=== PATIENT | male | born 1965 | race Caucasian/White ===

== ENCOUNTER 2020-04-03 07:03 | Emergency (ER) | payer BC ==
[2020-04-03] MEDS ORDERED: MORPHINE SULFATE 4 MG INJ IV ONE (07:41)
[2020-04-03] MEDS ORDERED: Compazine 10 MG/2 ML IV ONE (07:41)
[2020-04-03] MEDS ORDERED: Sodium Chloride 0.9% 1000 ML 1,000 ML IV STA (07:41)
[2020-04-03] MEDS ORDERED: MORPHINE SULFATE 4 MG INJ ONE (07:46)
[2020-04-03] MEDS ORDERED: Compazine 10 MG/2 ML ONE (07:47)
[2020-04-03] MEDS ORDERED: Sodium Chloride 0.9% 1000 ML 1,000 ML ONE (07:47)
[2020-04-03 08:02] LABS: Hematocrit 40.7 % (42-50); Hemoglobin 13.5 gm/dl (12.5-18.0); Mean Cell Volume 95.5 fl (78-100); Mean Corpuscular Hemoglobin 31.7 pg (26-32); Mean Corpuscular Hgb Concent. 33.2 g/dl (32-36); Mean Platelet Volume 9.6 fl (7.5-11.0); Platelet Count 219 K/mm3 (150-450); Red Blood Count 4.26 M/mm3 (4.1-5.6); Red Cell Distribution Width 12.7 % (11.5-14.0)
--- NOTE | 2020-04-03 08:02 | ERPHSYRPT ---
- History of Present Illness Time Seen by Provider: 04/03/20 08:00 Historian: patient Exam Limitations: no limitations Patient Subjective Stated Complaint: Pt c/o of left flank pain that began last night, pt has a hx of kidney stones Triage Nursing Assessment: Pt drove self to the ER, vitals wnl, rates pain /10, pain to left flank that radiates to the left side, skin n/w/d, pain when urinates, denies any other issues at this time Physician History: 54-year-old male with history of hypertension and obesity and recurrent kidney stone started having a left-sided flank pain last night associated with blood in his urine and frequency of urination. Pain was radiating from his left flank to left side of the front abdomen. He denies any nausea or vomiting. Timing/Duration: yesterday Activities at Onset: none Quality: dullness Abdominal Pain Onset Location: flank (left) Pain Radiation: LLQ Severity of Pain-Max: moderate Severity of Pain-Current: moderate Modifying Factors: Improves With: nothing Associated Symptoms: denies symptoms Allergies/Adverse Reactions: No Known Drug Allergies Allergy (Verified 04/03/20 07:23) Home Medications: Amlodipine Besylate [Norvasc] 10 mg PO DAILY 04/03/20 [History] Levothyroxine Sodium 100 Mcg [Synthroid 100 Mcg] 100 mcg PO DAILY 04/03/20 [History] Losartan Potassium 50 mg PO BID 04/03/20 [History] Simvastatin 10 mg [Zocor 10MG] 10 mg PO DAILY 04/03/20 [History] Travel Risk - International Travel Have you traveled outside of the country in past 3 weeks: No (n) If Yes, where;: n - Coronavirus Screening Close contact with a COVID-19 positive Pt in past 14-21 Days: No - Review of Systems Constitutional: No Fever, No Chills Eyes: No Symptoms Ears, Nose, & Throat: No Symptoms Respiratory: No Cough, No Dyspnea Cardiac: No Chest Pain, No Edema, No Syncope Abdominal/Gastrointestinal: Abdominal Pain, No Nausea, No Vomiting, No Diarrhea Genitourinary Symptoms: Dysuria, Frequency, Hematuria Musculoskeletal: No Back Pain, No Neck Pain Skin: No Rash Neurological: No Dizziness, No Focal Weakness, No Sensory Changes Psychological: No Symptoms Endocrine: No Symptoms All Other Systems: Reviewed and Negative - Past Medical History Pertinent Past Medical History: Yes Cardiac History: High Cholesterol, Hypertension Endocrine Medical History: Hypothyroidism Other Medical History: kidney stones - Past Surgical History Past Surgical History: Yes - Social History Smoking Status: Never smoker Exposure to second hand smoke: No Drug Use: none Patient Lives Alone: No - Nursing Vital Signs Nursing Vital Signs: Initial Vital Signs Temperature 98.0 F 04/03/20 07:14 Pulse Rate 81 04/03/20 07:14 Blood Pressure 128/78 04/03/20 07:14 O2 Sat by Pulse Oximetry 95 04/03/20 07:14 Pain Scale Pain Intensity 7 - Physical Exam General Appearance: no apparent distress, alert Eye Exam: PERRL/EOMI, eyes nml inspection Ears, Nose, Throat Exam: normal ENT inspection, pharynx normal, moist mucous membranes Neck Exam: normal inspection, non-tender, supple, full range of motion Respiratory Exam: normal breath sounds, lungs clear, No respiratory distress Cardiovascular Exam: regular rate/rhythm, normal heart sounds Gastrointestinal/Abdomen Exam: soft, No tenderness, No mass Back Exam: normal inspection, normal range of motion, No CVA tenderness, No vertebral tenderness Extremity Exam: normal inspection, normal range of motion, pelvis stable Neurologic Exam: alert, oriented x 3, cooperative, normal mood/affect, nml cerebellar function, sensation nml, No motor deficits Skin Exam: normal color, warm, dry SpO2: 95 - Course Nursing assessment & vital signs reviewed: Yes - CT Exams Abdomen/Pelvis CT Interpretation: Tele-radiologist Report (left mid ureter stone 8x5 mm) Ordered Tests: Active Orders 24 hr Category Date Time Status ABDOMEN AND PELVIS W/0 CONTRAS [CT] Stat Exams 04/03/20 07:42 Taken CBC W DIFF Stat Lab 04/03/20 07:50 Results CMP Stat Lab 04/03/20 07:50 Completed CULTURE,URINE Stat Lab 04/03/20 07:48 Received Manual Differential NC Stat Lab 04/03/20 07:50 Results Pathologist Review Stat Lab 04/03/20 07:50 Results UA W/RFX UR CULTURE Stat Lab 04/03/20 07:48 Completed Medication Summary Discontinued Medications Generic Name Dose Route Start Last Admin Trade Name Freq PRN Reason Stop Dose Admin Fentanyl Citrate 25 mcg 04/03/20 08:46 04/03/20 08:52 Sublimaze 100 Mcg/2 Ml IV 12/20/20 08:47 25 mcg STAT ONE Administration Fentanyl Citrate Confirm 04/03/20 08:51 Sublimaze 100 Mcg/2 Ml Administered 04/03/20 08:52 Dose 100 mcg .ROUTE .STK-MED ONE Sodium Chloride 1,000 mls @ 999 mls/hr 04/03/20 07:41 04/03/20 08:56 Sodium Chloride 0.9% 1000 Ml IV 04/03/20 08:41 Infused .Q1H1M STA Infusion Sodium Chloride Confirm 04/03/20 07:47 Sodium Chloride 0.9% 1000 Ml Administered 04/03/20 07:48 Dose 1,000 mls @ ud .ROUTE .STK-MED ONE Ceftriaxone Sodium/Dextrose 1 g in 50 mls @ 100 mls/hr 04/03/20 08:25 04/03/20 08:56 Rocephin 1 Gm-D5w 50 Ml Bag IV 04/03/20 08:54 Infused STAT STA Infusion Ceftriaxone Sodium/Dextrose Confirm 04/03/20 08:28 Rocephin 1 Gm-D5w 50 Ml Bag Administered 04/03/20 08:29 Dose 1 g in 50 mls @ ud IV .STK-MED ONE Morphine Sulfate 4 mg 04/03/20 07:41 04/03/20 07:50 Morphine Sulfate 4 Mg Inj IV 04/03/20 07:42 4 mg STAT ONE Administration Morphine Sulfate Confirm 04/03/20 07:46 Morphine Sulfate 4 Mg Inj Administered 04/03/20 07:47 Dose 4 mg .ROUTE .STK-MED ONE Prochlorperazine Edisylate 5 mg 04/03/20 07:41 04/03/20 07:49 Compazine 10 Mg/2 Ml IV 04/03/20 07:42 5 mg STAT ONE Administration Prochlorperazine Edisylate Confirm 04/03/20 07:47 Compazine 10 Mg/2 Ml Administered 04/03/20 07:48 Dose 10 mg .ROUTE .STK-MED ONE Lab/Rad Data: Laboratory Result Diagrams 04/03/20 07:50 04/03/20 07:50 Laboratory Results 04/03/20 04/03/20 04/03/20 Range/Units 07:50 07:50 07:48 WBC 35.1 H* (4.0-10.5) K/mm3 RBC 4.26 (4.1-5.6) M/mm3 Hgb 13.5 (12.5-18.0) gm/dl Hct 40.7 L (42-50) % MCV 95.5 (78-100) fl MCH 31.7 (26-32) pg MCHC 33.2 (32-36) g/dl RDW 12.7 (11.5-14.0) % Plt Count 219 (150-450) K/mm3 MPV 9.6 (7.5-11.0) fl Segmented Neutrophils 73 H (36.-66.) % Band Neutrophils 24 H (0.0-2.0) % Lymphocytes (Manual) 3 L (24-44) % Toxic Granulation 1+ Platelet Estimate NORMAL (NORMAL) RBC Morphology NORMAL Smear Path Review Pending Sodium 133 L (137-145) mmol/L Potassium 4.4 (3.5-5.1) mmol/L Chloride 99 (98-107) mmol/L Carbon Dioxide 25 (22-30) mmol/L Anion Gap 13.4 (5-15) MEQ/L BUN 24 H (9-20) mg/dL Creatinine 1.16 (0.66-1.25) mg/dL Estimated GFR > 60.0 ML/MIN Glucose 168 H (74-106) mg/dL Calcium 8.9 (8.4-10.2) mg/dL Total Bilirubin 0.70 (0.2-1.3) mg/dL AST 74 H (17-59) U/L ALT 70 H (0-50) U/L Alkaline Phosphatase 38 (38-126) U/L Serum Total Protein 6.9 (6.3-8.2) g/dL Albumin 3.7 (3.5-5.0) g/dL Urine Color YELLOW (YELLOW) Urine Appearance CLOUDY (CLEAR) Urine pH 9.0 (5-6) Ur Specific [place] 1.019 (1.005-1.025) Urine Protein 100 (Negative) Urine Ketones NEGATIVE (NEGATIVE) Urine Blood SMALL (0-5) David/ul Urine Nitrite POSITIVE (NEGATIVE) Urine Bilirubin NEGATIVE (NEGATIVE) Urine Urobilinogen NEGATIVE (0-1) mg/dL Ur Leukocyte Esterase LARGE (NEGATIVE) Urine WBC (Auto) >100 (0-5) /HPF Urine RBC (Auto) 0-2 (0-2) /HPF U Epithel Cells (Auto) RARE (FEW) /HPF Urine Bacteria (Auto) FEW (NEGATIVE) /HPF Urine Culture Reflexed YES (NO) Urine Glucose NEGATIVE (NEGATIVE) mg/dL - Progress Progress: unchanged, pain not gone completely Progress Note: 04/03/20 09:24 Patient has a left mid ureter kidney stone 8 x 5 mm in size. [facility] contacted. Urologist Dr. Deleon contacted. He accepted patient but he advised patient to be admitted under hospitalist service. Hospitalist service contacted and they accepted the patient. We will transfer patient via ambulance. Discussed with DrAnel: [facility] Will see patient in: hospital (observation) () Counseled pt/family regarding: lab results, diagnosis, need for follow-up, rad results - Departure Departure Disposition: Transfer () Clinical Impression: Left ureteral calculus Condition: Stable Critical Care Time: Yes Critical Care Time(excluding separately billable procedures): Critical 30-74 mins Referrals: Provider,Unknown [Primary Care Provider] - Instructions: Kidney Stones (DC)
[2020-04-03 08:08] LABS: White Blood Count 35.1 K/mm3 (4.0-10.5)
[2020-04-03 08:14] LABS: ALBUMIN 3.7 g/dL (3.5-5.0); ALKALINE PHOSPHATASE 38 U/L (38-126); ANION GAP 13.4 MEQ/L (5-15); BLOOD UREA NITROGEN 24 mg/dL (9-20); CHLORIDE 99 mmol/L (98-107); Calcium 8.9 mg/dL (8.4-10.2); Carbon Dioxide 25 mmol/L (22-30); Creatinine 1 1.16 mg/dL (0.66-1.25); EST GLOMERULAR FILTRATION RATE > 60.0 ML/MIN; Glucose 168 mg/dL (74-106); Potassium 4.4 mmol/L (3.5-5.1); SGOT/AST 74 U/L (17-59); SGPT/ALT 70 U/L (0-50); SODIUM 133 mmol/L (137-145); Total Protein 6.9 g/dL (6.3-8.2)
[2020-04-03 08:17] VITALS: BP 98/77
[2020-04-03 08:17] LABS: Appearance CLOUDY (CLEAR); Bacteria FEW /HPF (NEGATIVE); Bilirubin NEGATIVE (NEGATIVE); Blood SMALL Ery/ul (0-5); Epithelial Cells RARE /HPF (FEW); Glucose NEGATIVE (NEGATIVE); Ketones NEGATIVE (NEGATIVE); Leukocyte Esterase LARGE (NEGATIVE); Nitrite POSITIVE (NEGATIVE); Protein,Urine Dip 100 (Negative); RBC 0-2 /HPF (0-2); Specific Gravity 1.019 (1.005-1.025); Urobilinogen NEGATIVE mg/dL (0-1); WBC >100 /HPF (0-5)
[2020-04-03] MEDS ORDERED: ROCEPHIN 1 Gm-D5w 50 ml Bag** 1 G/50 ML IVPB IV STA (08:25)
[2020-04-03] MEDS ORDERED: ROCEPHIN 1 Gm-D5w 50 ml Bag** 1 G/50 ML IVPB IV ONE (08:28)
[2020-04-03] MEDS ORDERED: SUBLIMAZE 100 MCG/2 ML IV ONE (08:46)
[2020-04-03 08:48] LABS: BAND 24 % (0.0-2.0); Lymphocytes 3 % (24-44); Neutrophils 73 % (36.-66.); Total Cells Counted 100
[2020-04-03 08:49] LABS: Toxic Granulation 1+
[2020-04-03 08:50] LABS: Platelet Estimate NORMAL (NORMAL)
[2020-04-03] MEDS ORDERED: SUBLIMAZE 100 MCG/2 ML ONE (08:51)
[2020-04-03 09:03] VITALS: PULSE 84
[2020-04-03 09:27] VITALS: O2SAT 95
--- NOTE | 2020-04-03 19:08 | XRAY ---
Indication: Left abdomen pain. Multiple contiguous axial images obtained through the abdomen and pelvis without contrast. Comparison: None Lung bases demonstrates tiny left base calcified granuloma. Heart is not enlarged. Noncontrasted stomach and bowel loops appear nonobstructed. Normal appendix. Scattered descending and sigmoid diverticulosis. Proximal left ureter demonstrates a 8 mm calculus, approximately L3-L4 interspace level. Proximal ureter is prominent long with moderate hydronephrosis and mild perinephric stranding consistent with obstructive uropathy. No free fluid/air. A few additional bilateral renal micro-calculi. Fatty hepatomegaly measuring 22 cm. Spleen is also enlarged measuring 14.5 cm. Remaining gallbladder, pancreas, adrenal glands, bladder, and aorta are unremarkable for noncontrast exam. Osseous structures intact with mild degenerative changes lower lumbar spine. Impression: 1. 8 mm proximal left ureter calculus producing obstructive uropathy as detailed. Additional bilateral renal micro-calculi. 2. Incidental colonic diverticulosis, fatty hepatomegaly, and splenomegaly. Comment: Preliminary interpretation was made by [facility]. No critical discrepancy.
== END 2020-04-03 10:07 | disposition short-term general hospital (02) ==
LOC: ED 07:03
DX: N20.2 Calculus of kidney with calculus of ureter (principal)
CPT/HCPCS: 36000; 36415; 74176; 80053; 81001; 85025; 87077; 87086; 87186; 96360; 96365; 96374; 96375; 99285; 99291; J0696; J2270; J3010

== ENCOUNTER 2020-09-15 08:56 | Emergency (ER) | payer BC ==
[2020-09-15] MEDS ORDERED: Sodium Chloride 0.9% 1000 ML 1,000 ML IV STA (09:34)
[2020-09-15] MEDS ORDERED: ANTIVERT 25 MG PO ONE (09:34)
[2020-09-15] MEDS ORDERED: ANTIVERT 25 MG ONE (09:38)
[2020-09-15] MEDS ORDERED: Sodium Chloride 0.9% 1000 ML 1,000 ML ONE (09:39)
--- NOTE | 2020-09-15 09:41 | ERPHSYRPT ---
- History of Present Illness Time Seen by Provider: 09/15/20 08:58 Source: patient Exam Limitations: no limitations Patient Subjective Stated Complaint: Pt states that he woke this am at approx 0400 and the room was spinning, he has continued to be dizzy after getting up, he states that this happened before and is more prevelant when sleeping and rolling over to his left side Triage Nursing Assessment: Pt drove self to the ER, vitals wnl, denies pain, pulses normal, denies dizziness when turning head from side to side, skin n/w/d, denies ear pain, doesn't appear to be in any distress Physician History: 55 years old male with a history of hypertension, hypothyroidism, occasional vertigo symptoms presented in the ER with sudden onset room spinning sensation upon waking up at 3 in the morning while lying on the bed, went back to sleep and woke up again at 5 and since then he is having constant feeling of dizzin ess/lightheadedness without spinning sensation in himself or room. Now he feels more of a lightheaded and off-balance whenever tries to walk with tendency to fall on one side or the other. Denies any chest pain palpitations or shortness of breath. Does report having vertiginous symptoms in the past but normal off balance. Denies any visual disturbance, numbness tingling or focal weakness. Time of Onset/Last Time Seen Normal: 0300 Timing/Duration: hour(s) (6), constant, sudden, worse Severity: moderate Deficits: off balance Baseline/Normal Cognition: alert oriented x 3 Current Cognition: alert oriented x 3 Baseline Gait: walks w/o assistance Associated Symptoms: denies symptoms Allergies/Adverse Reactions: No Known Drug Allergies Allergy (Verified 04/03/20 07:23) Home Medications: Amlodipine Besylate [Norvasc] 10 mg PO DAILY 04/03/20 [History] Levothyroxine Sodium 100 Mcg [Synthroid 100 Mcg] 125 mcg PO DAILY 04/03/20 [History] Losartan Potassium 50 mg PO BID 04/03/20 [History] Simvastatin 10 mg [Zocor 10MG] 10 mg PO DAILY 04/03/20 [History] Travel Risk - International Travel Have you traveled outside of the country in past 3 weeks: No - Coronavirus Screening Are you exhibiting any of the following symptoms?: No Close contact with a COVID-19 positive Pt in past 14-21 Days: No - Vaccine Status Have you recieved a Covid-19 vaccination: Yes 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: [email or web address] - Review of Systems Constitutional: Fatigue Eyes: No Symptoms Ears, Nose, & Throat: No Symptoms Respiratory: No Symptoms Cardiac: No Symptoms Abdominal/Gastrointestinal: No Symptoms Genitourinary Symptoms: No Symptoms Musculoskeletal: No Symptoms Skin: No Symptoms Neurological: Dizziness, Gait Changes Psychological: No Symptoms Endocrine: No Symptoms Hematologic/Lymphatic: No Symptoms Immunological/Allergic: No Symptoms - Past Medical History Pertinent Past Medical History: Yes Cardiac History: High Cholesterol, Hypertension Endocrine Medical History: Hypothyroidism Other Medical History: kidney stones - Past Surgical History Past Surgical History: Yes - Social History Smoking Status: Never smoker Exposure to second hand smoke: No Drug Use: none Patient Lives Alone: No - Nursing Vital Signs Nursing Vital Signs: Initial Vital Signs Temperature 97.0 F 09/15/20 08:58 Pulse Rate 71 09/15/20 08:58 Respiratory Rate 12 09/15/20 08:58 Blood Pressure 138/73 09/15/20 08:58 O2 Sat by Pulse Oximetry 97 09/15/20 08:58 Pain Scale Pain Intensity 0 - Eli Coma Scale Best Eye Response (Coward): (4) open spontaneously Best Verbal Response (Eli): (5) oriented Best Motor Response (Coward): (6) obeys commands Coward Total: 15 - Physical Exam General Appearance: no apparent distress, alert Eye Exam: bilateral eye: normal inspection, PERRL, EOMI Ears, Nose, Throat Exam: normal ENT inspection, TMs normal, pharynx normal Neck Exam: normal inspection, non-tender, supple, full range of motion Respiratory: normal breath sounds, lungs clear Cardiovascular: regular rate/rhythm, normal heart sounds Gastrointestinal: soft, normal bowel sounds, No tenderness Back Exam: normal inspection, normal range of motion Extremity Exam: normal inspection, normal range of motion, pelvis stable Mental Status: alert, oriented x 3, 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 Exam: normal hearing, normal speech, PERRL, No abnormal speech, No facial asymmetry Coordination/Gait: normal finger to nose, normal cerebellar function, No ABN nose to finger (R), No ABN nose to finger (L) Motor/Sensory: no motor deficit, no sensory deficit, no pronator drift, negative Babinski's sign, No pronator drift (R), No pronator drift (L) DTR: bicep (R): 2+, bicep (L): 2+, tricep (R): 2+, tricep (L): 2+, knee (R): 2+, knee (L): 2+ Skin Exam: normal color SpO2 Interpretation: normal SpO2: 97 O2 Delivery: Room Air - Course EKG Interpreted by Me: RATE (65), Sinus Rhythm, NORMAL AXIS, NORMAL INTERVALS, Other (PACs) Ordered Tests: Active Orders 24 hr Category Date Time Status Chief Merchandising Officer STAT Care 09/15/20 09:35 Completed EKG-ER Only STAT Care 09/15/20 09:34 Completed IV Insertion STAT Care 09/15/20 09:34 Completed Orthostatic Vital Signs STAT Care 09/15/20 09:34 Completed POCT Glucose Check STAT Care 09/15/20 09:34 Completed CHEST 1 VIEW (PORTABLE) Stat Exams 09/15/20 09:34 Completed HEAD WITHOUT CONTRAST [CT] Stat Exams 09/15/20 09:34 Completed CBC W DIFF Stat Lab 09/15/20 09:20 Completed MAGNESIUM Stat Lab 09/15/20 09:34 Completed POCT GLUCOSE Stat Lab 09/15/20 09:09 Completed TROPONIN Q3H Lab 09/15/20 12:45 Ordered TROPONIN Q3H Lab 09/15/20 15:45 Ordered TROPONIN Q3H Lab 09/15/20 18:45 Ordered TROPONIN Q3H Lab 09/15/20 21:45 Ordered TSH [TSH, 3RD Generation] Stat Lab 09/15/20 09:35 Completed UA W/RFX UR CULTURE Stat Lab 09/15/20 09:48 Completed Medication Summary Discontinued Medications Generic Name Dose Route Start Last Admin Trade Name Freq PRN Reason Stop Dose Admin Sodium Chloride 1,000 mls @ 999 mls/hr 09/15/20 09:34 09/15/20 10:41 Sodium Chloride 0.9% 1000 Ml IV 09/15/20 10:34 Infused .Q1H1M STA Infusion Sodium Chloride Confirm 09/15/20 09:39 Sodium Chloride 0.9% 1000 Ml Administered 09/15/20 09:40 Dose 1,000 mls @ ud .ROUTE .STK-MED ONE Meclizine HCl 25 mg 09/15/20 09:34 09/15/20 09:40 Antivert 25 Mg PO 09/15/20 09:35 25 mg STAT ONE Administration Meclizine HCl Confirm 09/15/20 09:38 Antivert 25 Mg Administered 09/15/20 09:39 Dose 25 mg .ROUTE .STK-MED ONE Lab/Rad Data: Laboratory Result Diagrams 09/15/20 09:20 09/15/20 09:45 Laboratory Results 09/15/20 09/15/20 09/15/20 Range/Units 09:48 09:45 09:35 WBC (4.0-10.5) K/mm3 RBC (4.1-5.6) M/mm3 Hgb (12.5-18.0) gm/dl Hct (42-50) % MCV (78-100) fl MCH (26-32) pg MCHC (32-36) g/dl RDW (11.5-14.0) % Plt Count (150-450) K/mm3 MPV (7.5-11.0) fl Gran % (36.0-66.0) % Eos # (Auto) (0-0.5) Absolute Lymphs (auto) (1.0-4.6) Absolute Monos (auto) (0.0-1.3) Lymphocytes % (24.0-44.0) % Monocytes % (0.0-12.0) % Eosinophils % (0.00-5.0) % Basophils % (0.0-0.4) % Absolute Granulocytes (1.4-6.9) Basophils # (0-0.4) Sodium Direct 141 (138-146) mmol/L Potassium 4.3 (3.5-4.9) mmol/L Chloride 104 (98-109) mmol/L Carbon Dioxide 28 (24-29) mmol/L Venous BUN 21 (8-26) mg/dL Creatinine 0.6 (0.6-1.3) mg/dL Glucose 111 H (70-105) mg/dL POC Glucometer (74 to 106) mg/dL Ionized Calcium 1.23 (1.12-1.32) mmol/L Magnesium (1.6-2.3) mg/dL Troponin 0.00 (0.00-0.03) ng/mL TSH 3rd Generation 1.990 (0.47-4.68) mIU/L Urine Color YELLOW (YELLOW) Urine Appearance SLIGHTLY CLOUDY (CLEAR) Urine pH 7.0 (5-6) Ur Specific [place] 1.019 (1.005-1.025) Urine Protein NEGATIVE (Negative) Urine Ketones NEGATIVE (NEGATIVE) Urine Blood NEGATIVE (0-5) David/ul Urine Nitrite NEGATIVE (NEGATIVE) Urine Bilirubin NEGATIVE (NEGATIVE) Urine Urobilinogen NEGATIVE (0-1) mg/dL Ur Leukocyte Esterase NEGATIVE (NEGATIVE) Urine WBC (Auto) 0-2 (0-5) /HPF Urine RBC (Auto) NONE (0-2) /HPF U Epithel Cells (Auto) NONE (FEW) /HPF Urine Mucus (Auto) SLIGHT (NEGATIVE) /HPF Urine Culture Reflexed NO (NO) Urine Glucose NEGATIVE (NEGATIVE) mg/dL 09/15/20 09/15/20 09/15/20 Range/Units 09:34 09:20 09:09 WBC 7.0 (4.0-10.5) K/mm3 RBC 4.67 (4.1-5.6) M/mm3 Hgb 14.3 (12.5-18.0) gm/dl Hct 44.9 (42-50) % MCV 96.1 (78-100) fl MCH 30.6 (26-32) pg MCHC 31.8 L (32-36) g/dl RDW 13.0 (11.5-14.0) % Plt Count 209 (150-450) K/mm3 MPV 10.2 (7.5-11.0) fl Gran % 78.4 H (36.0-66.0) % Eos # (Auto) 0.01 (0-0.5) Absolute Lymphs (auto) 1.05 (1.0-4.6) Absolute Monos (auto) 0.43 (0.0-1.3) Lymphocytes % 15.0 L (24.0-44.0) % Monocytes % 6.2 (0.0-12.0) % Eosinophils % 0.1 (0.00-5.0) % Basophils % 0.3 (0.0-0.4) % Absolute Granulocytes 5.47 (1.4-6.9) Basophils # 0.02 (0-0.4) Sodium Direct (138-146) mmol/L Potassium (3.5-4.9) mmol/L Chloride (98-109) mmol/L Carbon Dioxide (24-29) mmol/L Venous BUN (8-26) mg/dL Creatinine (0.6-1.3) mg/dL Glucose (70-105) mg/dL POC Glucometer 110 H (74 to 106) mg/dL Ionized Calcium (1.12-1.32) mmol/L Magnesium 2.1 (1.6-2.3) mg/dL Troponin (0.00-0.03) ng/mL TSH 3rd Generation (0.47-4.68) mIU/L Urine Color (YELLOW) Urine Appearance (CLEAR) Urine pH (5-6) Ur Specific [place] (1.005-1.025) Urine Protein (Negative) Urine Ketones (NEGATIVE) Urine Blood (0-5) David/ul Urine Nitrite (NEGATIVE) Urine Bilirubin (NEGATIVE) Urine Urobilinogen (0-1) mg/dL Ur Leukocyte Esterase (NEGATIVE) Urine WBC (Auto) (0-5) /HPF Urine RBC (Auto) (0-2) /HPF U Epithel Cells (Auto) (FEW) /HPF Urine Mucus (Auto) (NEGATIVE) /HPF Urine Culture Reflexed (NO) Urine Glucose (NEGATIVE) mg/dL - Progress Progress: improved, re-examined Progress Note: 09/15/20 11:45 55 years old is evaluated for vertiginous symptoms with gait disturbance. He has a nonfocal neuro exam throughout stay in the ER. He is given meclizine and his symptoms started to improve. CT head is negative. Grossly unremarkable work-up including EKG and troponin. I have obtained [facility] neurology consult who do not think patient has any stroke related symptoms and is BPV, recommended meclizine to take as needed and outpatient follow-up. Discussed signs symptoms of worsening needing return to ER which he seems understanding. Stable for discharge. Discussed with DrAnel: Other Counseled pt/family regarding: lab results, diagnosis, rad results - Departure Departure Disposition: Home Clinical Impression: BPV (benign positional vertigo) Qualifiers: Laterality: unspecified laterality Qualified Code(s): H81.10 - Benign paroxysmal vertigo, unspecified ear Condition: Stable Critical Care Time: No Referrals: ANITHA MIGUEL MD [Primary Care Provider] - (1-2 days for re evaluation) Instructions: Vertigo (a Type of Dizziness) (DC), Dizziness, Nonvertigo, (DC) Prescriptions: Meclizine HCl 25 mg [Antivert 25 mg] 25 mg PO TID PRN #15 tablet PRN Reason: Dizziness
[2020-09-15 09:46] LABS: Appearance SLIGHTLY CLOUDY (CLEAR); Bilirubin NEGATIVE (NEGATIVE); Blood NEGATIVE Ery/ul (0-5); Glucose NEGATIVE (NEGATIVE); Ketones NEGATIVE (NEGATIVE); Leukocyte Esterase NEGATIVE (NEGATIVE); Mucus SLIGHT /HPF (NEGATIVE); Nitrite NEGATIVE (NEGATIVE); Protein,Urine Dip NEGATIVE (Negative); Specific Gravity 1.019 (1.005-1.025); Urobilinogen NEGATIVE mg/dL (0-1); WBC 0-2 /HPF (0-5)
--- NOTE | 2020-09-15 10:23 | XRAY ---
Indication: Dizziness. No known injury. Multiple contiguous axial images obtained through the head without contrast. Comparison: None Normal appearing brain parenchyma, ventricles, and bony calvarium. Visualized paranasal sinuses and mastoid air cells are clear. Impression: Normal CT head without contrast exam.
--- NOTE | 2020-09-15 10:27 | XRAY ---
Indication: Dizziness. Comparison: November 05, 2008. Portable chest less inflated with new mild right base infiltrate versus atelectasis. Remaining heart, lungs, and bony thorax unremarkable.
[2020-09-15 10:30] LABS: Absolute Neutrophil Ct (ANC) 5.47 (1.4-6.9); BASOPHIL % 0.3 % (0.0-0.4); Basophil (Absolute #) 0.02 (0-0.4); Eosinophil % 0.1 % (0.00-5.0); Eosinophil (Absolute #) 0.01 (0-0.5); Hematocrit 44.9 % (42-50); Hemoglobin 14.3 gm/dl (12.5-18.0); Lymphocyte (Absolute #) 1.05 (1.0-4.6); Mean Cell Volume 96.1 fl (78-100); Mean Corpuscular Hemoglobin 30.6 pg (26-32); Mean Corpuscular Hgb Concent. 31.8 g/dl (32-36); Mean Platelet Volume 10.2 fl (7.5-11.0); Monocyte (Absolute #) 0.43 (0.0-1.3); Monocytes % 6.2 % (0.0-12.0); Neutrophil % 78.4 % (36.0-66.0); Platelet Count 209 K/mm3 (150-450); Red Blood Count 4.67 M/mm3 (4.1-5.6)
[2020-09-15 10:59] LABS: ISTAT CREA 0.6 mg/dL (0.6-1.3)
[2020-09-15 11:29] VITALS: BP 131/70; PULSE 66
[2020-09-15 11:49] VITALS: O2SAT 97
== END 2020-09-15 12:08 | disposition home or self-care (01) ==
LOC: ED 08:56
DX: H81.10 Benign paroxysmal vertigo, unspecified ear (principal)
CPT/HCPCS: 36415; 70450; 71045; 80047; 81001; 82947; 83735; 84443; 84484; 85025; 93005; 93041; 96360; 99284; A9270-GY

== ENCOUNTER 2021-03-31 05:57 | Day surgery (SDC) | payer BC ==
[2021-03-31] MEDS ORDERED: Lactated Ringers 1,000 ML IV SCH (06:30)
[2021-03-31] MEDS ORDERED: Versed 2 MG/2 ML Injection ONE (07:00)
[2021-03-31] MEDS ORDERED: DIPRIVAN 200 MG/20 ML IV ONE ×2 (07:00→07:14)
[2021-03-31 08:15] VITALS: O2SAT 97
[2021-03-31 08:32] VITALS: BP 121/81; PULSE 64
--- NOTE | 2021-03-31 12:54 | OP ---
SURGERY DATE/TIME: 03/31/2021 0700 PREOPERATIVE DIAGNOSIS: Screening exam. Father with history of colon cancer. POSTOPERATIVE DIAGNOSIS: Two small polyps in the colon and mild sigmoid diverticulosis. PROCEDURE: Colonoscopy with cold forceps biopsy. SURGEON: Dr. Gandara. ANESTHESIA: MAC. Medications given by anesthesia department. HISTORY: The patient is a 55-year-old white male patient presenting now for screening colonoscopy. He reports his father has had colon cancer. This is his first examination. The patient was appraised of the risks of the procedure including the risk of perforation, phlebitis, untoward reaction to medication, bleeding and missed lesions. The patient verbalized his understanding and desired to have the procedure performed. DESCRIPTION OF PROCEDURE: The patient was given the medications by the anesthesia department. He had continuous pulse oximetry, ECG monitoring, intermittent blood pressure monitoring during the examination. He was placed in the left lateral decubitus position. A digital rectal examination was performed and revealed normal anal sphincter tone, no masses and a normal prostate. The flexible Olympus pediatric colonoscope was used to intubate the rectum. A view of the colon was developed sequentially to the cecum. Upon insertion and withdrawal, including a retroflex view in the rectum was noted a small polyp in the descending colon which was biopsied to destruction using cold forceps biopsy. A second slightly larger polyp was noted in the sigmoid colon and this was likewise retrieved with cold forceps biopsy to remove the lesion. Upon insertion and withdrawal including retroflexion in the rectum, no other mucosal lesions were noted. Mild sigmoid diverticulosis was present. The scope was removed from the patient. He was sent back to the recovery in good condition. The prep was noted to be fair to good with some liquid stool particularly in descending and sigmoid colon.
== END 2021-03-31 08:45 | disposition home or self-care (01) ==
LOC: SDC 05:57
PROVIDERS: ATTEND Family Medicine
DX: Z12.11 Encounter for screening for malignant neoplasm of colon (principal); K57.30 Diverticulosis of large intestine without perforation or abscess without bleeding; Z80.0 Family history of malignant neoplasm of digestive organs; D12.4 Benign neoplasm of descending colon; D12.5 Benign neoplasm of sigmoid colon
CPT/HCPCS: 88305; J2250; J2704

== ENCOUNTER 2022-09-19 03:35 | Emergency (ER) | payer BC ==
[2022-09-19] MEDS ORDERED: TORAdol 30 mg Injection IV ONE (04:02)
[2022-09-19] MEDS ORDERED: Sodium Chloride 0.9% 1000 ML 1,000 ML IV STA (04:02)
--- NOTE | 2022-09-19 04:09 | ERPHSYRPT ---
- History of Present Illness Time Seen by Provider: 09/19/22 04:05 Historian: patient Exam Limitations: no limitations Patient Subjective Stated Complaint: pt states "I think I have had a kidney stone. I have had them before. I need something for pain." Triage Nursing Assessment: pt ambulatory to bed by self, present, A&Ox3, skin pwd, pt c/o R sided flank that radiates to R abdomen, pt has previous hx of kidney stones with a stent in L Kidney placed 3 years ago, afebrile, c/o nausea as well Physician History: Patient is a 57-year-old male presents to our ED with right-sided flank pain. Patient states that he has a history of kidney stones x3. Patient's last kidney stone was approximately 3 years ago at which time he had a left ureteral stent placed. Patient's pain started today at approximately 9 AM. Patient states his pain started at the left flank. Patient did not come in earlier as the pain essentially resolved. Patient states pain reoccurred early this morning. However pain was now on the right side. No associated chest pain or shortness of breath. No nausea vomiting or diaphoresis. No obvious hematuria. Pain is moderate in intensity. No specific worsening or improving factors. Patient voices no other complaints or concerns at this time. Portions of this note were created with voice recognition technology. There may be grammatical, spelling, punctuation or sound alike errors Timing/Duration: today Activities at Onset: none Quality: aching Abdominal Pain Onset Location: other (Right flank) Pain Radiation: other (Pain radiates from upper right flank to lower right flank.) Severity of Pain-Max: moderate Severity of Pain-Current: mild Modifying Factors: Improves With: nothing Associated Symptoms: denies symptoms Previous symptoms: same symptoms as today Allergies/Adverse Reactions: No Known Drug Allergies Allergy (Verified 09/19/22 03:46) Home Medications: Amlodipine Besylate [Norvasc] 10 mg PO DAILY 04/03/20 [History] Levothyroxine Sodium 100 Mcg [Synthroid 100 Mcg] 125 mcg PO DAILY 04/03/20 [History] Losartan Potassium 50 mg PO BID 04/03/20 [History] Simvastatin 10 mg [Zocor 10MG] 10 mg PO DAILY 04/03/20 [History] Hx Tetanus, Diphtheria Vaccination/Date Given: No Hx Influenza Vaccination/Date Given: Yes Hx Pneumococcal Vaccination/Date Given: No Immunizations Up to Date: Yes Travel Risk - International Travel Have you traveled outside of the country in past 3 weeks: No - Coronavirus Screening Are you exhibiting any of the following symptoms?: No Close contact with a COVID-19 positive Pt in past 14-21 Days: No - Vaccine Status Have you recieved a Covid-19 vaccination: Yes 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: [email or web address] - Review of Systems Constitutional: No Symptoms, No Fever, No Chills Eyes: No Symptoms Ears, Nose, & Throat: No Symptoms Respiratory: No Symptoms, No Cough, No Dyspnea Cardiac: No Symptoms, No Chest Pain, No Edema, No Syncope Abdominal/Gastrointestinal: No Symptoms, No Abdominal Pain, No Nausea, No Vomiting, No Diarrhea Genitourinary Symptoms: No Symptoms, No Dysuria Musculoskeletal: No Symptoms, No Back Pain, No Neck Pain Skin: No Symptoms, No Rash Neurological: No Symptoms, No Dizziness, No Focal Weakness, No Sensory Changes Psychological: No Symptoms Endocrine: No Symptoms Hematologic/Lymphatic: No Symptoms Immunological/Allergic: No Symptoms All Other Systems: Reviewed and Negative - Past Medical History Pertinent Past Medical History: Yes Neurological History: No Pertinent History ENT History: No Pertinent History Cardiac History: High Cholesterol, Hypertension Respiratory History: No Pertinent History Endocrine Medical History: Hypothyroidism Musculoskeletal History: No Pertinent History GI Medical History: No Pertinent History History: No Pertinent History Psycho-Social History: No Pertinent History Male Reproductive Disorders: No Pertinent History Other Medical History: kidney stones - Past Surgical History Past Surgical History: Yes Neuro Surgical History: No Pertinent History Cardiac: No Pertinent History Respiratory: No Pertinent History Gastrointestinal: Hernia Repair Genitourinary: Kidney Surgery Musculoskeletal: No Pertinent History Male Surgical History: No Pertinent History Other Surgical History: L kidney stent - Social History Smoking Status: Never smoker Exposure to second hand smoke: No Drug Use: none Patient Lives Alone: No - Nursing Vital Signs Nursing Vital Signs: Initial Vital Signs Temperature 98.8 F 09/19/22 03:49 Pulse Rate 84 09/19/22 03:49 Respiratory Rate 18 09/19/22 03:49 Blood Pressure 120/78 09/19/22 03:49 O2 Sat by Pulse Oximetry 94 L 09/19/22 03:49 Pain Scale Pain Intensity 0 - Physical Exam General Appearance: no apparent distress, alert Eye Exam: PERRL/EOMI, eyes nml inspection Ears, Nose, Throat Exam: normal ENT inspection, pharynx normal, moist mucous membranes Neck Exam: normal inspection, non-tender, supple, full range of motion Respiratory Exam: normal breath sounds, lungs clear, airway intact, No respiratory distress Cardiovascular Exam: regular rate/rhythm, normal heart sounds, normal peripheral pulses Gastrointestinal/Abdomen Exam: soft, other (Right CVA tenderness.), No tenderness, No mass Back Exam: normal inspection, normal range of motion, No CVA tenderness, No vertebral tenderness Extremity Exam: normal inspection, normal range of motion, pelvis stable Neurologic Exam: alert, oriented x 3, cooperative, normal mood/affect, nml cerebellar function, sensation nml, No motor deficits Skin Exam: normal color, warm, dry Lymphatic Exam: No adenopathy SpO2 Interpretation: normal SpO2: 94 O2 Delivery: Room Air - Course Nursing assessment & vital signs reviewed: Yes - CT Exams Abdomen/Pelvis CT Interpretation: Tele-radiologist Report (Obstructing calculus in the right renal pelvis/ureteropelvic junction measuring 1 x 1.3 cm. Nephrolithiasis right kidney. 1.6 x 0.5 cm obstructing calculus at the left proximal ureter. Left nephrolithiasis) Ordered Tests: Active Orders 24 hr Category Date Time Status IV Insertion STAT Care 09/19/22 04:02 Active ABDOMEN AND PELVIS W/0 CONTRAS [CT] Stat Exams 09/19/22 04:02 Completed CBC W DIFF Stat Lab 09/19/22 04:31 Completed CMP Stat Lab 09/19/22 04:31 Completed UA W/RFX UR CULTURE Stat Lab 09/19/22 06:00 Received Medication Summary Generic Name Dose Route Start Last Admin Trade Name Freq PRN Reason Stop Dose Admin Ceftriaxone Sodium/Dextrose 1 g in 50 mls @ 100 mls/hr 09/19/22 05:54 09/19/22 06:02 Rocephin 1 Gm-D5w 50 Ml Bag IV 09/19/22 06:23 100 mls/hr STAT STA 100 mls/hr Administration Discontinued Medications Generic Name Dose Route Start Last Admin Trade Name Freq PRN Reason Stop Dose Admin Sodium Chloride 1,000 mls @ 999 mls/hr 09/19/22 04:02 09/19/22 06:12 Sodium Chloride 0.9% 1000 Ml IV 09/19/22 05:02 Infused .Q1H1M STA Infusion Sodium Chloride Confirm 09/19/22 04:16 Sodium Chloride 0.9% 1000 Ml Administered 09/19/22 04:17 Dose 1,000 mls @ ud .ROUTE .STK-MED ONE Ceftriaxone Sodium/Dextrose Confirm 09/19/22 06:01 Rocephin 1 Gm-D5w 50 Ml Bag Administered 09/19/22 06:02 Dose 1 g in 50 mls @ ud IV .STK-MED ONE Ketorolac Tromethamine 30 mg 09/19/22 04:02 09/19/22 04:17 Ketorolac Tromethamine 30 Mg/Ml Inj IV 09/19/22 04:03 30 mg STAT ONE Administration Ketorolac Tromethamine Confirm 09/19/22 04:16 Ketorolac Tromethamine 30 Mg/Ml Inj Administered 09/19/22 04:17 Dose 30 mg .ROUTE .STK-MED ONE Ondansetron HCl 4 mg 09/19/22 04:14 09/19/22 04:17 Ondansetron Hcl 4 Mg/2 Ml Vial IV 09/19/22 04:15 4 mg STAT ONE Administration Ondansetron HCl Confirm 09/19/22 04:16 Ondansetron Hcl 4 Mg/2 Ml Vial Administered 09/19/22 04:17 Dose 4 mg .ROUTE .STK-MED ONE Lab/Rad Data: Laboratory Result Diagrams 09/19/22 04:31 09/19/22 04:31 Laboratory Results 09/19/22 09/19/22 Range/Units 04:31 04:31 WBC 16.1 H (4.0-10.5) x10^3/uL RBC 4.40 (4.1-5.6) x10^6/uL Hgb 13.5 (12.5-18.0) g/dL Hct 40.5 L (42-50) % MCV 92.0 (78-100) fL MCH 30.7 (26-32) pg MCHC 33.3 (32-36) g/dL RDW 13.3 (11.5-14.0) % Plt Count 188 (150-450) x10^3/uL MPV 10.2 (7.5-11.0) fL Gran % 87.1 H (36.0-66.0) % Immature Gran % (Auto) 0.7 H (0.00-0.4) % Nucleat RBC Rel Count 0.0 (0.00-0.1) % Eos # (Auto) 0 (0-0.5) x10^3/uL Immature Gran # (Auto) 0.11 H (0.00-0.03) x10^3u/L Absolute Lymphs (auto) 0.52 L (1.0-4.6) x10^3/uL Absolute Monos (auto) 1.43 H (0.0-1.3) x10^3/uL Absolute Nucleated RBC 0.00 (0.00-0.01) x10^3u/L Lymphocytes % 3.2 L (24.0-44.0) % Monocytes % 8.9 (0.0-12.0) % Eosinophils % 0.0 (0.00-5.0) % Basophils % 0.1 (0.0-0.4) % Absolute Granulocytes 13.98 H (1.4-6.9) x10^3/uL Basophils # 0.02 (0-0.4) x10^3/uL Sodium 130 L (137-145) mmol/L Potassium 4.1 (3.5-5.1) mmol/L Chloride 95 L (98-107) mmol/L Carbon Dioxide 25 (22-30) mmol/L Anion Gap 14.5 (5-15) MEQ/L BUN 31 H (9-20) mg/dL Creatinine 2.04 H (0.66-1.25) mg/dL Estimated GFR 36.1 ML/MIN Glucose 144 H (74-106) mg/dL Calcium 8.5 (8.4-10.2) mg/dL Total Bilirubin 1.20 (0.2-1.3) mg/dL AST 37 (17-59) U/L ALT 26 (0-50) U/L Alkaline Phosphatase 42 (38-126) U/L Serum Total Protein 7.3 (6.3-8.2) g/dL Albumin 3.9 (3.5-5.0) g/dL Slides for Path Review YES - Progress Progress: improved Progress Note: Patient has a lytic lesion with sclerosis in the left proximal femoral shaft measuring 3.2 x 1.8 cm. This will require further evaluation. This was conveyed to patient directly by Dr. Savage. Nursing staff also aware. Our nursing staff will convey this information to the receiving nurses at [facility]. Case discussed with ER physician at [facility] who accepts transfer. Transfer was accepted at 6:17 AM. Plan of care discussed with patient. Patient agrees to transfer to [facility] for further evaluation and treatment. Patient is a 57-year-old male presents to our ED for evaluation of flank pain. Flank pain initially on the left side. Left sided flank pain resolved then occurred at the right flank. Physical exam reveals right-sided costovertebral angle tenderness. No CVA tenderness at the left side. UA ordered. Patient unable to produce urine in our ED. tests ordered include CBC which reveals a leukocytosis of 16. CMP reveals a hyponatremia of 130. Elevated creatinine of 2.0. CT abdomen pelvis reveals right renal pelvis UPJ obstructing calculus of 1.0 x 1.3 cm. This is causing perinephric fat stranding and mildly dilated right pelvicalyceal Christa system nephrolithiasis observed. Obstructing left calculus measuring 1.6 x 0.5 cm located at the left proximal ureter UA ordered however patient has not urinated. In light of leukocytosis patient empirically treated with a gram of Rocephin. Patient also received a liter of normal saline Zofran and Toradol A lytic lesion with sclerosis observed at the left proximal femoral shaft measuring 3.2 x 1.8 cm. This lytic lesion will require further evaluation. Complexity of problem addressed is moderate, new diagnosis with uncertain prognosis., Chronic illness with exacerbation. Critical care time Complex of data reviewed and analyzed is extensive. Dr. Savage independently or reviewed and analyzed all laboratory data. Significant derangements observed including acute renal injury and hyponatremia. IV fluids infused to address the hyponatremia. Case and plan of care discussed with accepting ER physician at [facility] accepts transfer. Risk of complication and or risk morbidity/mortality patient management is high. Patient will require transfer/hospitalization for further evaluation and treatment of underlying pathology. Patient agrees to transfer to [facility] for further evaluation and treatment. 09/19/22 06:24 Discussed with : Other Counseled pt/family regarding: lab results, diagnosis, rad results - Departure Departure Disposition: Transfer Clinical Impression: Leukocytosis, Hyponatremia, Acute renal injury, Nephrolithiasis, Hydronephrosis, Renal colic, Perinephric fat stranding, Fatty liver, Diverticulosis, Lytic lesion left proximal femoral shaft Condition: Stable Critical Care Time: No Referrals: ANITHA MIGUEL MD [Primary Care Provider] - Follow up/PCP as directed
[2022-09-19] MEDS ORDERED: Zofran 4 MG/2 ML VIAL IV ONE ×2 (04:14→07:31)
[2022-09-19] MEDS ORDERED: TORAdol 30 mg Injection ONE (04:16)
[2022-09-19] MEDS ORDERED: Sodium Chloride 0.9% 1000 ML 1,000 ML ONE (04:16)
[2022-09-19] MEDS ORDERED: Zofran 4 MG/2 ML VIAL ONE ×2 (04:16→07:20)
[2022-09-19 04:33] LABS: Absolute Neutrophil Ct (ANC) 13.98 x10^3/uL (1.4-6.9); BASOPHIL % 0.1 % (0.0-0.4); Basophil (Absolute #) 0.02 x10^3/uL (0-0.4); Eosinophil (Absolute #) 0 x10^3/uL (0-0.5); Hematocrit 40.5 % (42-50); Hemoglobin 13.5 g/dL (12.5-18.0); IMMATURE GRAN # 0.11 x10^3u/L (0.00-0.03); IMMATURE GRAN % 0.7 % (0.00-0.4); Lymphocyte (Absolute #) 0.52 x10^3/uL (1.0-4.6); Lymphocytes % 3.2 % (24.0-44.0); Mean Corpuscular Hemoglobin 30.7 pg (26-32); Mean Corpuscular Hgb Concent. 33.3 g/dL (32-36); Mean Platelet Volume 10.2 fL (7.5-11.0); Monocyte (Absolute #) 1.43 x10^3/uL (0.0-1.3); Monocytes % 8.9 % (0.0-12.0); Neutrophil % 87.1 % (36.0-66.0); Platelet Count 188 x10^3/uL (150-450); Red Cell Distribution Width 13.3 % (11.5-14.0); White Blood Count 16.1 x10^3/uL (4.0-10.5)
[2022-09-19 04:48] LABS: ALBUMIN 3.9 g/dL (3.5-5.0); ANION GAP 14.5 MEQ/L (5-15); BILIRUBIN,TOTAL 1.2 mg/dL (0.2-1.3); Calcium 8.5 mg/dL (8.4-10.2); Creatinine 1 2.04 mg/dL (0.66-1.25); EST GLOMERULAR FILTRATION RATE 36.1 ML/MIN; Potassium 4.1 mmol/L (3.5-5.1); Total Protein 7.3 g/dL (6.3-8.2)
[2022-09-19 05:37] LABS: Slide Review 1 YES
[2022-09-19] MEDS ORDERED: ROCEPHIN 1 Gm-D5w 50 ml Bag** 1 G/50 ML IVPB IV STA (05:54)
[2022-09-19] MEDS ORDERED: ROCEPHIN 1 Gm-D5w 50 ml Bag** 1 G/50 ML IVPB IV ONE (06:01)
--- NOTE | 2022-09-19 06:07 | XRAY ---
CLINICAL HISTORY:pain COMPARISON:Comparison made with prior CT abdomen dated 04-03-2020; TECHNIQUES:CT scan of the abdomen and pelvis was performed without IV contrast; FINDINGS: Interval evidence of an obstructing calculus of 1.0 x 1.3 cm ( 712 HU) in the right renal pelvis causing a mildly dilated right pelvicalyceal system with significant perinephric fat stranding and thickening of gerota"s fascia. Redemonstration of a few nonobstructing calculi in the lower pole of the right kidney, one o them measuring 1.66 x 0.5 cm and another one measuring 0.9 x0.6 cm. Interval increase in the size of an obstructing calculus of 1.6 x 0.5 cm ( 849 HU) in the left proximal ureter causing mild obstructive uropathy proximal to it. Previously it measured 0.8 x 0.6 cm. A faint nonobstructing calculus of less than 2 mm is seen in the lower pole of the left kidney. Left-sided perinephric fat stranding is also seen. No mass, or cyst on either side. The right ureter appears normal. The urinary bladder is suboptimally filled at the time of the scan however no calculus was identified within the urinary bladder. The prostate gland is normal in size with specks of parenchymal calcification. Diffuse low-attenuation of liver parenchyma suggestive of fatty infiltration. No hepatic mass is identified. No intra-or extrahepatic biliary dilation. Gall bladder appears normal with wall thickness. No radio-opaque calculus or pericholecystic fluid was identified. Common bile appears normal. Pancreas appears normal. No peripancreatic fat stranding, pancreatic pseudocyst, or peripancreatic fluid collection. Spleen normal in size, no mass seen. Both adrenal glands are unremarkable. Stomach and small bowel loops are unremarkable. Caecum and ileocecal junction appear normal. The appendix is not separately visualized however no fat stranding in the right iliac fossa. Large bowel loops appear normal without evidence of bowel obstruction. Diverticulosis in the sigmoid colon without evidence of diverticulitis. No evidence of ascites or pneumoperitoneum. No evidence of significant enlargement of the mesenteric or retroperitoneal lymph nodes. In the included section of lung bases, minimal atelectatic changes were seen on the right side. Small calcified granuloma left lung base. Mild degenerative changes in visualized thoracolumbar spine. A lytic lesion with sclerosis in the left proximal femoral shaft, measuring 3.2 x 1.8 cm. If clinically indicated, further evaluation is advised. IMPRESSION: 1. Interval evidence of an obstructing calculus in the right renal pelvis/ureteropelvic junction measuring 1.0 x 1.3 cm ( 712 HU) causing a mildly dilated right pelvicalyceal system with significant perinephric fat stranding. 2. Redemonstration of a few nonobstructing calculi in the lower pole of the right kidney. 3. Interval increase in the size of obstructing calculus of 1.6 x 0.5 cm ( 849 HU) in the left proximal ureter causing mild obstructive uropathy proximal to it. A faint nonobstructing calculus of less than 2 mm in the lower pole of the left kidney. 4. The rest of the findings are detailed above. [facility] ER was called at at 5:47 AM EST, 09/19/2022 and results were verbally communicated to Dr. Savage. Electronically Signed by: Surinder Arias MD. (09/19/2022 05:00:43 COMPUTER SYSTEMS ARCHITECT)
[2022-09-19 06:23] LABS: Appearance Turbid (Clear); Bacteria Moderate /HPF (None Seen); Bilirubin Negative (Negative); Blood Large (Negative); Epithelial Cells Few /HPF (None Seen); Glucose, Urine Negative (Negative); Ketones Negative (Negative); Leukocyte Esterase Large (Negative); Nitrite Positive (Negative); Ph 7.5 (4.6-8.0); Protein,Urine Dip 300 (Negative); RBC >100 /HPF (0-5); Specific Gravity 1.015 (1.005-1.030); Urobilinogen 0.2 mg/dL (0.2); WBC >100 /HPF (0-5)
[2022-09-19 06:34] LABS: ADD URINE CULTURE? YES (NO)
[2022-09-19] MEDS ORDERED: Hydromorphone 1 mg/ml Injection ONE (07:20)
[2022-09-19] MEDS ORDERED: Hydromorphone 1 mg/ml Injection IV ONE (07:31)
[2022-09-19 08:19] VITALS: BP 170/98; PULSE 90; O2SAT 92
== END 2022-09-19 08:19 | disposition short-term general hospital (02) ==
LOC: ED 03:35
DX: N13.2 Hydronephrosis with renal and ureteral calculous obstruction (principal); Z87.442 Personal history of urinary calculi; D72.829 Elevated white blood cell count, unspecified; E87.1 Hypo-osmolality and hyponatremia; N17.9 Acute kidney failure, unspecified; R93.429 Abnormal radiologic findings on diagnostic imaging of unspecified kidney; K76.0 Fatty (change of) liver, not elsewhere classified; K57.90 Diverticulosis of intestine, part unspecified, without perforation or abscess without bleeding; M89.9 Disorder of bone, unspecified; R10.9 Unspecified abdominal pain; E78.5 Hyperlipidemia, unspecified; I10 Essential (primary) hypertension; Z79.899 Other long term (current) drug therapy
CPT/HCPCS: 36000; 36415; 74176; 80053; 81001; 85025; 87077; 87086; 87186; 96360; 96365; 96374; 96375; 96376; 99285; J0696; J1170; J1885; J2405

== ENCOUNTER 2024-03-20 06:22 | Day surgery (SDC) | payer BC ==
[2024-03-20 06:39] VITALS: RESP 16
[2024-03-20] MEDS ORDERED: Versed 2 MG/2 ML Injection ONE (08:08)
[2024-03-20] MEDS ORDERED: DIPRIVAN 200 MG/20 ML IV ONE ×2 (08:08→08:25)
[2024-03-20] MEDS ORDERED: Xylocaine-Mpf 2% 5 Ml Vial ONE (08:08)
[2024-03-20 09:06] VITALS: TEMP 97.8
[2024-03-20 09:14] VITALS: BP 115/85; PULSE 69; O2SAT 95
--- NOTE | 2024-03-23 09:01 | OP ---
SURGERY DATE/TIME: 03/20/2024 [id number] PREOPERATIVE DIAGNOSIS: Screening colonoscopy. POSTOPERATIVE DIAGNOSIS: Sigmoid colon polyps x2. PROCEDURE: Colonoscopy. SURGEON: Samir Kunz MD ANESTHESIA: MAC by Alonso Gutierrez CRNA. ESTIMATED BLOOD LOSS: Minimal. SPECIMEN: Two hot forceps polypectomy from the sigmoid colon. DESCRIPTION OF PROCEDURE AND FINDINGS: After informed written consent was obtained, the patient was taken to the endoscopy suite. He was placed in left lateral decubitus position and anesthesia was titrated to the desired level of consciousness. Digital rectal exam showed normal sphincter tone and no internal lesions. The scope was inserted in the rectum and sequentially the entire colonic mucosa was traversed. The level of the cecum was reached and verified with direct visualization of the ileocecal valve. Upon withdrawal, there were numerous scattered diverticula mostly concentrated in the sigmoid colon. There was a proximal sigmoid colon polyp which was grasped with a forceps to remove in piecemeal fashion and cauterized, appeared to be adequately removed and hemostatic following removal, and there was another smaller sessile polyp in the sigmoid which was grasped with a forceps, cauterized, and removed and sent for pathology. Remainder of the exam was unremarkable again other than scattered diverticula. Prior to withdrawal, retroflexion was performed and showed no internal lesions. The scope was removed, and the patient was transferred to the recovery room in good condition. He has been advised to follow up in 1 week for pathology with likely need for colonoscopy followup in 3 to 5 years.
== END 2024-03-20 09:23 | disposition home or self-care (01) ==
LOC: SDC 06:22
PROVIDERS: ATTEND Family Medicine
DX: Z12.11 Encounter for screening for malignant neoplasm of colon (principal); K63.5 Polyp of colon
CPT/HCPCS: J2250; J2704